=== PATIENT | male | born 1960 | race Caucasian/White ===

== ENCOUNTER → 2016-05-27 | Outpatient (CLI) | payer BC ==
--- NOTE | 2016-05-27 13:06 | PN ---
DATE OF SERVICE: 05/27/2016. A 55-year-old gentleman who has been followed in the sleep center for treatment of obstructive sleep apnea/hypopnea syndrome. He does not have any problems with usage of his CPAP equipment. [place] Sleepiness Scale is 5. I checked his CPAP unit. Usage is 28 out of 30 nights for more than 4 hours, average usage 6.6 hours. CPAP pressure is 13 cm of water. Leak is up to ( ) liters per minute, which is acceptable. Apnea-hypopnea index reading for the one month is 3.4, which is good range. MEDICATIONS: Atenolol, lisinopril, amlodipine. During physical exam, the patient in no distress. VITAL SIGNS: BP 171/81, HR 60, RR 16. Height 6 feet 0 inches, weight 294. BMI 39.8. Temperature 98.1. Oxygen saturation at room air 95%. HEENT: PERRLA, EOMI, Evaluation of the oropharynx showed tongue protrudes midline. NECK: Supple. No JVD, Thyroid is not palpable. LUNGS: Clear to percussion and to auscultation. Good air exchange. No wheezing or rhonchi. HEART: S1, S2 regular. No murmurs, gallops, or rubs. ABDOMEN: Obese. MUSIC INTERNSHIP: Awake, alert, and oriented x3. Cranial nerves 2 to 7 intact. There is no fasciculation or atrophy noted. No focal deficits observed. One plus bilateral ankle edema. IMPRESSION: 1. Obstructive sleep apnea/hypopnea syndrome on control with CPAP. Patient demonstrated great compliance with treatment, benefiting from treatment. 2. Hypertension. 3. Obesity. Patient's weight is 5 pounds less than during the visit one year ago. 4. Status post left hand surgery. 5. Status post left knee surgery. PLAN: 1. Continue treatment with CPAP at the pressure of 13 cm of water every night for the whole night. 2. Prescription for all necessary CPAP supplies. 3. Continue losing weight. 4. Sleep hygiene with regular time in bed for at least 8 hours. 5. No driving if feeling any sleepiness. 6. Continue with primary care physician for monitoring blood pressure if necessary adjustments of medications. 7. Low-sodium diet. Thank you very much for allowing me to participate in the management of your patient. Sincerely, Angelo Stevenson MD, PhD, FAASM Diplomat of [place] Board of Sleep Medicine, Sleep Medicine Board by [place] [employer] Specialities [place] Board of Internal Medicine Fashion Buying Internship of [facility] [place]
== END | disposition home or self-care (01) ==
LOC: SLEEP 10:55
PROVIDERS: ATTEND Internal Medicine
DX: G47.33 Obstructive sleep apnea (adult) (pediatric) (principal); E66.9 Obesity, unspecified; Z68.39 Body mass index [BMI] 39.0-39.9, adult; I10 Essential (primary) hypertension; Z79.899 Other long term (current) drug therapy

== ENCOUNTER → 2017-05-26 | Outpatient (CLI) | payer BC ==
--- NOTE | 2017-05-26 11:38 | SFUN ---
SLEEP STUDY FOLLOW UP NOTE DATE OF SERVICE: 05/26/2017 A 56-year-old gentleman has been followed in sleep center for treatment of obstructive sleep apnea-hypopnea syndrome. The patient continued to use his CPAP equipment every night for the whole night. He does not experience any difficulties or problems related to mask, tube, filters. Sometimes he mentioned slight leak from the mask. [place] Sleepiness Scale is 5. I checked his CPAP unit. Usage is 100% of the time more than 4 hours, average 6.9 hours. Pressure is 13 cm of water. Apnea-hypopnea index is only 1.4, but leak is quite high 68 L/minute. MEDICATIONS: Atenolol, lisinopril, amlodipine. PHYSICAL EXAM: During physical exam, patient in no distress. VITAL SIGNS: BP 173/84, HR 52, RR 16, height 6 feet 0 inches, weight 256, BMI 34.7. Patient lost around 40 pounds since previous visit. Oxygen saturation at room air 97%. HEENT: PERRLA, EOMI. Oropharynx extremely low position of soft palate. NECK: Supple, no JVD. Thyroid is not palpable. LUNGS: Clear to percussion and to auscultation. Good air exchange. No wheezing or rhonchi. HEART: S1, S2 regular. No murmurs, gallops, or rubs. ABDOMEN: Obese. EXTREMITIES: No clubbing or cyanosis. DEMOLITION HAMMER OPERATOR: Awake, alert, and oriented X3. Cranial nerves 2 to 7 intact. There is no fasciculation or atrophy. noted. No focal deficits observed. IMPRESSION: 1. Obstructive sleep apnea-hypopnea syndrome, on full control with CPAP at 13 cm of water. Patient demonstrated 100% compliance with treatment. Respirations is normal on treatment with CPAP. 2. Obesity, body mass index 34.7. Patient lost around 40 pounds since previous visit. 3. Hypertension. 4. Status post left hand surgery. 5. Status post left knee surgery. PLAN: 1. Continue treatment with CPAP every night. 2. Continue losing weight. 3. I will decrease pressure down to 12 cm of water because patient lost 40 pounds of weight and I reviewed results of previous study also. 4. We will consider to change full face mask to different style because with this mask patient has significant leak. 5. Prescription for all necessary CPAP supplies including mask, tube, filters. 6. No driving if feeling sleepiness. 7. Sleep hygiene with regular time in bed for 7-1/2 hours. 8. Followup visit in 1 year or earlier if patient has any problems. Thank you very much for allowing me to participate in management of your patient. Sincerely, Angelo Stevenson MD, PhD, FAASM Diplomat of [place] [employer] Specialties [place] Board of Internal Medicine Conference Assistant of [facility] [place] MMODL / SHANNONN: [id number] /
== END | disposition home or self-care (01) ==
LOC: SLEEP 10:17
PROVIDERS: ATTEND Internal Medicine
DX: G47.33 Obstructive sleep apnea (adult) (pediatric) (principal); E66.9 Obesity, unspecified; Z99.89 Dependence on other enabling machines and devices; Z79.899 Other long term (current) drug therapy; Z68.34 Body mass index [BMI] 34.0-34.9, adult; Z98.890 Other specified postprocedural states

== ENCOUNTER → 2018-04-20 | Outpatient (CLI) | payer BC ==
--- NOTE | 2018-04-20 11:14 | SFUN ---
SLEEP CENTER FOLLOW UP NOTE DATE OF SERVICE: 04/20/2018 This 57-year-old gentleman has been followed in sleep center for treatment of obstructive sleep apnea-hypopnea syndrome. The patient continued to use CPAP equipment every night for the whole night. He is using full-face mask and feels some discomfort on the bridge of his nose with the mask. I checked his CPAP unit. CPAP pressure is 12 cm of water. Usage is 100% of the time more than 4 hours. Average 6.1 hours. Leak 20 L/minute, which is acceptable for full- face mask. Apnea-hypopnea index 2.4, which is normal range. [place] Sleepiness Scale today is 4. MEDICATIONS: Atenolol, lisinopril. PHYSICAL EXAMINATION: During physical exam, patient in no distress. VITAL SIGNS: BP 167/87, HR 52, RR 16, height 6 feet, weight 272.2 pounds, which is around 16 pounds above the previous visit, temperature 98.5, oxygen saturation at room air 97%. HEENT: PERRLA, EOMI. Oropharynx extremely low position of soft palate. NECK: Supple, no JVD. Thyroid is not palpable. LUNGS: Clear to percussion and to auscultation. Good air exchange. No wheezing or rhonchi. HEART: S1, S2 regular. No murmurs, gallops, or rubs. ABDOMEN: Obese. EXTREMITIES No clubbing or cyanosis. DETAILER SCHOOL PHOTOGRAPHS: Awake, alert, and oriented x3. Cranial nerves 2 to 7 intact. There is no fasciculation or atrophy. noted. No focal deficits observed. IMPRESSION: 1. Obstructive sleep apnea-hypopnea syndrome on full control with CPAP at 12 cm of water. Patient demonstrated 100% compliance with treatment benefitting from treatment. 2. Slight irritation on the bridge of the nose from a full-face mask AirFit F20. 3. Obesity. 4. Hypertension. 5. Status post left hand surgery. 6. Status post left knee surgery. PLAN: 1. We will fit the patient with a different style of full-face mask when mask goes to the nose from below. It does not go to the bridge of the nose. Continue to use CPAP equipment every night for the whole night. 2. Losing weight. 3. Sleep hygiene with regular time in bed for at least 8 hours. 4. No driving if feeling any sleepiness. Thank you very much for allowing me to participate in management of your patient. Sincerely, Angelo Stevenson MD, PhD, FAASM Diplomat of [employer] Board of Medical Specialties [employer] Board of Internal Medicine Volunteer Patient Representative of [facility] [place] MMANCELMO / SHANELL: [id number] /
== END | disposition home or self-care (01) ==
LOC: SLEEP 10:09
PROVIDERS: ATTEND Internal Medicine
DX: G47.33 Obstructive sleep apnea (adult) (pediatric) (principal); J34.89 Other specified disorders of nose and nasal sinuses; E66.9 Obesity, unspecified; I10 Essential (primary) hypertension; Z99.89 Dependence on other enabling machines and devices; Z79.899 Other long term (current) drug therapy

== ENCOUNTER → 2019-10-25 | Outpatient (CLI) | payer OTHER ==
--- NOTE | 2019-10-25 16:42 | SFUN ---
SLEEP CENTER FOLLOW UP NOTE This patient is a 59-year-old gentleman who has been followed in Sleep Center for treatment of obstructive sleep apnea-hypopnea syndrome. The patient continues to use his CPAP equipment every night without significant problems. No sleepiness during the day. [place] Sleepiness Scale is 5, which is in normal range. I checked his CPAP unit. CPAP pressure is 12 cm of water. Usage is 30/30 nights for more than 4 hours with average usage 7.4 hours per night. Leak is 4 L/minute, which is perfect. Apnea-hypopnea index is only 2.5, which is absolutely normal. MEDICATIONS: Atenolol, , losartan. PHYSICAL EXAMINATION: GENERAL: A pleasant patient in no distress. VITAL SIGNS: BP 151/83, HR 70, RR 16, height 6 feet 0 inches, weight 282, BMI 38.2, temperature 98.8, oxygen saturation at room air 96%. HEENT: PERRLA, EOMI. Evaluation of oropharynx showed tongue protrudes midline. Extremely low position of soft palate. NECK: Supple. No JVD. Thyroid is not palpable. LUNGS: Clear to percussion and to auscultation. Good air exchange. No wheezing or rhonchi. HEART: S1, S2 regular. No murmurs, gallops or rubs. ABDOMEN: Obese. EXTREMITIES: No clubbing or cyanosis. VACUUM DRIER OPERATOR: Awake, alert, and oriented X3. Cranial nerves 2 to 7 intact. There is no fasciculation or atrophy. noted. No focal deficits observed. IMPRESSION: 1. Obstructive sleep apnea-hypopnea syndrome. Patient demonstrated 100% compliance with treatment. Normal respiration on CPAP. 2. Obesity. 3. Hypertension. 4. Status post left hip replacement 09/19/2019. 5. Status post left knee surgery. 6. Status post left hand surgery. PLAN: 1. Patient will continue to use PAP equipment every night for the whole night. 2. Sleep hygiene with regular time in bed for at least 7-1/2 to 8 hours. 3. Precautions related to driving. No driving if feeling sleepiness. 4. I will maintain all necessary prescription for PAP supplies, including mask, tube, filters. 5. Watching weight. 6. No driving if feeling sleepiness. 7. Follow-up visit in 6 months or earlier if patient has any problems. Thank you very much for allowing me to participate in the management of your patient. Sincerely, Angelo Stevenson MD, PhD, FAASM Diplomat of [place] [employer] Medical Specialties [place] Board of Internal Medicine Exercise Scientist of [facility] [place] MMANCELMO / SHANELL: [id number] /
== END | disposition home or self-care (01) ==
LOC: SLEEP 11:30
PROVIDERS: ATTEND Internal Medicine
DX: G47.33 Obstructive sleep apnea (adult) (pediatric) (principal); E66.9 Obesity, unspecified; I10 Essential (primary) hypertension; Z96.642 Presence of left artificial hip joint; Z96.652 Presence of left artificial knee joint; Z98.890 Other specified postprocedural states; Z68.38 Body mass index [BMI] 38.0-38.9, adult; Z79.899 Other long term (current) drug therapy

== ENCOUNTER 2020-04-07 14:57 | Emergency (ER) | payer BC, OTHER ==
[2020-04-07 15:10] VITALS: RESP 18
--- NOTE | 2020-04-07 17:33 | ED ---
General Adult HPI - General Chief complaint: Shortness of Breath Stated complaint: SOB/Cough/+COVID Time Seen by Provider: 04/07/20 16:46 Source: patient, RN notes reviewed Mode of arrival: ambulatory Limitations: no limitations - History of Present Illness Initial comments: This a 59-year-old male presents emergency Department chief complaint of shortne ss of breath. Patient states he started with symptoms on March 23. He states he tested few days after. Patient states he went back and on [place] '[place] and tested positive again. Patient states that he has quarantined for 14 days he still has some mild residual shortness of breath he did have nausea vomiting diarrhea which has resolved. He did have sweats which have all resolved. - Related Data Home Medications Medication Instructions Recorded Confirmed HYDROcodone/APAP 7.5-325MG [Donora 1 each PO Q4H PRN 02/14/14 02/14/14 7.5] Losartan Potassium 100 mg PO DAILY 02/14/14 02/14/14 atenoloL [Tenormin] 50 mg PO BID 02/14/14 02/14/14 Previous Rx's Medication Instructions Recorded Lisinopril [Prinivil] 10 mg PO DAILY #30 tab 02/14/14 Albuterol Sulfate [Proair Hfa] 1 - 2 puff INHALATION Q4HR PRN #1 04/07/20 inhaler Dexamethasone [Decadron] 6 mg PO DAILY #5 tablet 04/07/20 Allergies Allergy/AdvReac Type Severity Reaction Status Date / Time iodine AdvReac Unknown Verified 04/07/20 15:10 Penicillins AdvReac Unknown Verified 04/07/20 15:10 seafood AdvReac Unknown Uncoded 04/07/20 15:10 Review of Systems ROS Statement: Those systems with pertinent positive or pertinent negative responses have been documented in the HPI. ROS Other: All systems not noted in ROS Statement are negative. Past Medical History Past Medical History: Hypertension Additional Past Medical History / Comment(s): back pain r/t old injury History of Any Multi-Drug Resistant Organisms: None Reported Past Surgical History: Orthopedic Surgery Additional Past Surgical History / Comment(s): hand fracture surgically repaired Past Psychological History: No Psychological Hx Reported Smoking Status: Never smoker Past Alcohol Use History: Rare Past Drug Use History: None Reported General Exam Limitations: no limitations General appearance: alert, in no apparent distress Head exam: Present: atraumatic, normocephalic, normal inspection Eye exam: Present: normal appearance, PERRL, EOMI. Absent: scleral icterus, conjunctival injection, periorbital swelling ENT exam: Present: normal exam, normal oropharynx, mucous membranes moist Neck exam: Present: normal inspection, full ROM. Absent: tenderness, meningi smus, lymphadenopathy Respiratory exam: Present: normal lung sounds bilaterally. Absent: respiratory distress, wheezes, rales, rhonchi, stridor Cardiovascular Exam: Present: regular rate, normal rhythm, normal heart sounds. Absent: systolic murmur, diastolic murmur, rubs, gallop, clicks Back exam: Absent: CVA tenderness (R), CVA tenderness (L) Neurological exam: Present: alert, oriented X3 Skin exam: Present: warm, dry, intact, normal color. Absent: rash Course Vital Signs 04/07/20 15:06 Temperature 98.8 F Pulse Rate 79 Respiratory 18 Rate Blood Pressure 164/82 O2 Sat by Pulse 96 Oximetry Medical Decision Making - Medical Decision Making 59-year-old presented for shortness of breath. Patient has residual symptoms from covid Patient's x-ray shows no evidence of pneumonia. Patient denies any fevers chills he has to the all her symptoms are improving. Patient discharged on steroids. Return parameters were discussed. Disposition Clinical Impression: Pneumonia due to COVID-19 virus Disposition: HOME SELF-CARE Condition: Stable Instructions (If sedation given, give patient instructions): Upper Respiratory Infection (ED) Additional Instructions: Please return to the Emergency Department if symptoms worsen or any other concerns. Prescriptions: Dexamethasone [Decadron] 6 mg PO DAILY #5 tablet Albuterol Sulfate [Proair Hfa] 1 - 2 puff INHALATION Q4HR PRN #1 inhaler PRN Reason: difficulty in breathing Is patient prescribed a controlled substance at d/c from ED?: No Referrals: Jose Luis Hartley DO [Primary Care Provider] - 1-2 days Time of Disposition: 18:07
--- NOTE | 2020-04-07 17:59 | XR ---
EXAMINATION TYPE: XR chest 2V DATE OF EXAM: 04/07/2020 COMPARISON: 02/14/2014 HISTORY: Cough and congestion TECHNIQUE: 2 views FINDINGS: Heart and mediastinum are normal. There is some coarsening of interstitial markings in the right lower lobe. There is no pleural effusion. There are no hilar masses. Bony thorax is intact. IMPRESSION: There is some new mild interstitial infiltrate in the right lower lobe compared to old ex am.
[2020-04-07 18:20] VITALS: BP 160/85; PULSE 68; TEMP 98.2
== END 2020-04-07 18:20 | disposition home or self-care (01) ==
LOC: EC 14:57
DX: U07.1 COVID-19 (principal); J12.89 Other viral pneumonia; I10 Essential (primary) hypertension; Z79.899 Other long term (current) drug therapy; Z88.0 Allergy status to penicillin; Z91.041 Radiographic dye allergy status; Z91.013 Allergy to seafood
CPT/HCPCS: 71046; 99284

== ENCOUNTER → 2020-10-23 | Outpatient (CLI) | payer BC ==
--- NOTE | 2020-10-23 20:12 | SFUN ---
SLEEP CENTER FOLLOW UP NOTE DATE OF SERVICE: 10/23/2020. 60-year-old gentleman has been followed in Sleep Center for treatment of obstructive sleep apnea-hypopnea syndrome. Patient has successfully continues to use his CPAP every night. No snoring with CPAP. He is using a full face mask, AirFit 20 large size. I checked his CPAP unit. Pressure 12 cm of water. Usage is 30/30 nights for more than 4 hours and average 6.5 hours of night. Leak is 14 L/minute which is acceptable. Apnea- hypopnea index is only 2.5, which is perfect. [place] Sleepiness Scale today is 5. MEDICATIONS: Chlorthalidone 25 mg once a day, losartan 100 mg once a day. Atenolol 50 mg twice a day. PHYSICAL EXAMINATION: GENERAL: Patient in no distress. BP 132/81, HR 58, RR 15, height 6 feet 0 inches, weight 298, BMI 40.4, temperature 97.9. Oxygen saturation on room air 94%. Oropharynx extremely low position of soft palate. Mallampati 4. NECK: Supple, no JVD. Thyroid is not palpable. LUNGS: Clear to percussion and to auscultation. Good air exchange. No wheezing or rhonchi. HEART: S1, S2 regular. No murmurs, gallops, or rubs. ABDOMEN: Obese. Soft and nontender. Bowel sounds are present. No organomegaly appreciated. EXTREMITIES: No clubbing or cyanosis. ENVIRONMENTAL TECHNICAL OFFICER: Awake, alert, and oriented X3. Cranial nerves 2 to 7 intact. There is no fasciculation or atrophy. noted. No focal deficits observed. IMPRESSION: 1. Obstructive sleep apnea-hypopnea syndrome. Patient demonstrated 100% compliance with treatment benefitting from treatment. Normal respiration on CPAP. 2. Obesity. Patient increased weight 16 pounds. 3. Hypertension. 4. Status post left hip replacement in September of 2019. 5. Status post left knee surgery. 6. Status post left hand surgery. PLAN: 1. Although patient increased his weight, apnea-hypopnea index is normal. There is no necessity to increase CPAP pressure. 2. Patient will continue to use PAP equipment every night for the whole night. 3. Sleep hygiene with regular time in bed for at least 7-1/2 to 8 hours. 4. Precautions related to driving. No driving if feeling sleepiness. 5. I will maintain all necessary prescription for PAP supplies including mask, tube, filters. 6. Watching weight. 7. Follow-up visit in 6 months or earlier if patient has any problems. I spent with the patient and documentation 50 minutes. Thank you very much for allowing me to participate in management of your patient. Sincerely, Angelo Stevenson MD, PhD, FAASM Diplomat of [place] Board of Medical Specialties Sleep Medicine Board of [place] Board of Internal Medicine Candy Department Manager of [facility] [place] MMODL / SHANNONN: [id number] /
== END ==
LOC: SLEEP 10:16
PROVIDERS: ATTEND Internal Medicine
DX: G47.33 Obstructive sleep apnea (adult) (pediatric) (principal); I10 Essential (primary) hypertension; E66.9 Obesity, unspecified; Z96.642 Presence of left artificial hip joint; Z98.890 Other specified postprocedural states; Z79.899 Other long term (current) drug therapy; Z68.41 Body mass index [BMI] 40.0-44.9, adult; Z91.041 Radiographic dye allergy status; Z88.0 Allergy status to penicillin; Z91.013 Allergy to seafood; Z87.891 Personal history of nicotine dependence

== ENCOUNTER → 2021-10-14 | Outpatient (CLI) | payer BC ==
--- NOTE | 2021-10-14 08:39 | US ---
EXAMINATION TYPE: US bladder DATE OF EXAM: 10/14/2021 COMPARISON: NONE CLINICAL HISTORY: R35.0 Frequency of micturition. Urinary frequency. EXAM MEASUREMENTS: Post Void Residual Volume: 17.1 mL Adequate distention of bladder without intraluminal mass or wall thickening. Color Doppler performed to assess ureteral jets. Bilateral Jets seen: Yes Normal Post Void Residual (less than 50ml): Yes Prostate was visualized measuring 5.3 x 3.7 x 3.5 cm. IMPRESSION: Prominent prostate otherwise unremarkable study.
== END | disposition home or self-care (01) ==
LOC: RADUSWWP 07:36
PROVIDERS: ATTEND Family Medicine
DX: N32.89 Other specified disorders of bladder (principal)
CPT/HCPCS: 76857

== ENCOUNTER → 2022-04-28 | Outpatient (CLI) | payer BC ==
--- NOTE | 2022-04-28 10:46 | P.PN ---
Subjective DATE: 04/28/2022 FOLLOW UP VISIT. Patient with obstructive sleep apnea hypopnea syndrome return to sleep center for follow-up visit. Information from previous visit have been reviewed. Patient is using PAP equipment every night for the whole night, getting PAP supplies in time. The patient does not have significant problems with the mask, PAP unit and humidification. [place] sleepiness scale is 6, which is normal. I checked information from PAP unit. PAP unit pressure 12 cm H2O. Usage is 100 % for more then 4 hours, average 6.4 hours per night. Leak is 6 l/m, which is in acceptable range. Apnea Hypopnea Index is 3.3, which is normal. MEDICATIONS:1. Atenolol 50 mg once a day 2. Losartan 100 mg once a day 3. Chlorthalidone 25 mg once a day During physical exam: GENERAL: A pleasant patient without any distress. VITAL SIGNS: BP 152/83, HR 76, RR 18, weight 276.6, temperature 99.0, oxygen saturation at room air 96 % . HEENT: PERRLA, EOMI.low position of soft palate, Mallapati 4 . NECK: Supple. No JVD. LUNGS: Clear to percussion and to auscultation. Good air exchange. No wheezing or rhonchi. HEART: S1, S2 regular. ABDOMEN: Soft and nontender.[] EXTREMITIES: No clubbing or cyanosis. FIELD REPRESENTATIVE/HEALTH EDUCATION: Awake, alert, and oriented x3. No focal deficit. Impressions: 1. Obstructive sleep apnea-hypopnea syndrome. Patient demonstrated great compliance with treatment, benefiting from treatment. 2. Obesity. Patient lost 30 pounds since previous visit. 3. Hypertension. 4. Status post left knee surgery. 5. Status post left hip replacement in 2019. 6. Status post left hand surgery. Plan: 1. Continue using PAP equipment every night for the whole night. 2. To change air filter at least 1-2 times per month. 3. PAP unit should stay lower then position of the head. 4. Advised patient to remove all remaining water from humidifier canister daily and make it dry after each usage. Refill canister with fresh distilled water before each usage. 5. Sleep hygiene with regular time in bed for at least 8 hours. 6. Precautions related to driving. No driving if feel any sleepiness. 7. I will maintain prescription for PAP supplies including mask, tube, filters. 8. Follow up visit in 6 months or earlier if patient has any problems. 9. Watching and continue losing weight. Thank you very much for allowing me to participate in the management of your patient. Angelo Stevenson MD, PhD, FAASM. Diplomat of [place] Board of Sleep Medicine, Sleep Medicine Board by [place] [employer] of Internal Medicine Cylinder Block Hole Reliner of [facility] [place]
== END ==
LOC: SLEEP 09:56
PROVIDERS: ATTEND Internal Medicine
DX: G47.33 Obstructive sleep apnea (adult) (pediatric) (principal); E66.9 Obesity, unspecified; Z99.89 Dependence on other enabling machines and devices; Z88.0 Allergy status to penicillin; Z87.891 Personal history of nicotine dependence; Z91.013 Allergy to seafood; I10 Essential (primary) hypertension; Z98.890 Other specified postprocedural states; Z96.642 Presence of left artificial hip joint; Z79.899 Other long term (current) drug therapy; Z88.8 Allergy status to other drugs, medicaments and biological substances
CPT/HCPCS: 99212

== ENCOUNTER → 2022-10-06 | Outpatient (CLI) | payer BC ==
--- NOTE | 2022-10-06 10:47 | P.PN ---
Subjective DATE: 10/06/2022 FOLLOW UP VISIT. Patient with obstructive sleep apnea hypopnea syndrome return to sleep center for follow-up visit. Information from previous visit have been reviewed. Patient is using PAP equipment every night for the whole night, getting PAP supplies in time. The patient does not have significant problems with the mask, PAP unit and humidification. [place] sleepiness scale is 5, which is normal. I checked information from PAP unit. PAP unit pressure 12 cm H2O. Usage is 100 % for more then 4 hours, average 6.5 hours per night. Leak is 13 l/m, which is in acceptable range. Apnea Hypopnea Index is 2.5, which is normal. MEDICATIONS:1. Chlorthalidone 25 mg once a day 2. Atenolol 50 mg once a day 3. Losartan 100 mg once a day During physical exam: GENERAL: A pleasant patient without any distress. VITAL SIGNS: BP 155/84, HR 54, RR 18 , weight 277.4, temperature 98.5, oxygen saturation at room air 95 % . HEENT: PERRLA, EOMI.low position of soft palate, Mallapati 4 . NECK: Supple. No JVD. LUNGS: Clear to percussion and to auscultation. Good air exchange. No wheezing or rhonchi. HEART: S1, S2 regular. ABDOMEN: Soft and nontender. Obese EXTREMITIES: No clubbing or cyanosis. LABORATORY ENGINEER: Awake, alert, and oriented x3. No focal deficit. Impressions: 1. Obstructive sleep apnea-hypopnea syndrome. Patient demonstrated great compliance with treatment, benefiting from treatment. 2. Obesity. 3. Hypertension. 4. Status post left hip replacement in 2019. 5. Status post left knee surgery. 6. Status post left hand surgery. Plan: 1. Continue using PAP equipment every night for the whole night. 2. To change air filter at least 1-2 times per month. 3. PAP unit should stay lower then position of the head. 4. Advised patient to remove all remaining water from humidifier canister daily and make it dry after each usage. Refill canister with fresh distilled water before each usage. 5. Sleep hygiene with regular time in bed for at least 8 hours. 6. Precautions related to driving. No driving if feel any sleepiness. 7. I will maintain prescription for PAP supplies including mask, tube, filters. 8. Watching and losing weight. 9. Follow up visit in 6 months or earlier if patient has any problems. Thank you very much for allowing me to participate in the management of your patient. Angelo Stevenson MD, PhD, FAASM. Diplomat of [place] Board of Sleep Medicine, Sleep Medicine Board by [place] [employer] of [employer] Medicine Wheelchair Van Driver of [facility] [place]
== END ==
LOC: 3 N SLEEP 10:16
PROVIDERS: ATTEND Internal Medicine
DX: G47.33 Obstructive sleep apnea (adult) (pediatric) (principal); E66.9 Obesity, unspecified; I10 Essential (primary) hypertension; Z99.89 Dependence on other enabling machines and devices; Z96.652 Presence of left artificial knee joint; Z96.692 Finger-joint replacement of left hand; Z96.642 Presence of left artificial hip joint; Z88.0 Allergy status to penicillin; Z91.013 Allergy to seafood; Z91.041 Radiographic dye allergy status; Z79.899 Other long term (current) drug therapy; Z87.891 Personal history of nicotine dependence
CPT/HCPCS: 99212

== ENCOUNTER → 2023-04-13 | Outpatient (CLI) | payer BC ==
--- NOTE | 2023-04-13 10:52 | P.PN ---
Subjective DATE: 04/13/2023 FOLLOW UP VISIT. Patient with obstructive sleep apnea hypopnea syndrome return to sleep center for follow-up visit. Information from previous visit have been reviewed. Patient is using PAP equipment every night for the whole night, getting PAP supplies in time. The patient does not have significant problems with the mask, PAP unit and humidification. Independence sleepiness scale is 2, which is normal. I checked information from PAP unit. PAP unit pressure 12 cm H2O. Usage is 98 % for more then 4 hours, average 7 hours per night. Leak is 7 l/m, which is in acceptable range. Apnea Hypopnea Index is 4.7, which is normal, but slightly increased compared with previous visit when it was 2.5. MEDICATIONS:1. Chlorthalidone 25 mg once a day 2. Atenolol 50 mg once a day 3. Losartan 100 mg once a day During physical exam: GENERAL: A pleasant patient without any distress. VITAL SIGNS: BP 170/88, HR 57, RR 16 , weight 286.8, temperature 98.2, oxygen saturation at room air 96 % . HEENT: PERRLA, EOMI.low position of soft palate, Mallapati 4 . NECK: Supple. No JVD. LUNGS: Clear to percussion and to auscultation. Good air exchange. No wheezing or rhonchi. HEART: S1, S2 regular. ABDOMEN: Soft and nontender. Slightly obese EXTREMITIES: No clubbing or cyanosis. GRAVITY PROSPECTOR: Awake, alert, and oriented x3. No focal deficit. Impressions: 1. Obstructive sleep apnea-hypopnea syndrome. Patient demonstrated great compliance with treatment, benefiting from treatment. 2. Obesity, patient increased his weight on 9 pounds comparing for the previous visit. 3. Hypertension. 4. Status post left hip replacement in 2019. 5. Status post left knee surgery. 6. Status post left hand surgery. I changed pressure in CPAP unit to AutoPAP 10-15 cm of water. Plan: 1. Continue using PAP equipment every night for the whole night. 2. To change air filter at least 1-2 times per month. 3. PAP unit should stay lower then position of the head. 4. Advised patient to remove all remaining water from humidifier canister daily and make it dry after each usage. Refill canister with fresh distilled water before each usage. 5. Sleep hygiene with regular time in bed for at least 8 hours. 6. Precautions related to driving. No driving if feel any sleepiness. 7. I will maintain prescription for PAP supplies including mask, tube, filters. 8. Follow up visit in 6 months or earlier if patient has any problems. 9. Watching and losing weight. Thank you very much for allowing me to participate in the management of your patient. Angelo Stevenson MD, PhD, FAASM. Diplomat of [employer], Sleep Medicine Board by [employer] [facility] [place]
== END ==
LOC: 3 N SLEEP 10:13
PROVIDERS: ATTEND Internal Medicine
DX: G47.33 Obstructive sleep apnea (adult) (pediatric) (principal); E66.9 Obesity, unspecified; I10 Essential (primary) hypertension; Z98.890 Other specified postprocedural states; Z99.89 Dependence on other enabling machines and devices; Z88.1 Allergy status to other antibiotic agents; Z88.0 Allergy status to penicillin; Z91.013 Allergy to seafood; Z79.899 Other long term (current) drug therapy; Z87.891 Personal history of nicotine dependence
CPT/HCPCS: 99212

== ENCOUNTER → 2023-11-10 | Outpatient (CLI) | payer BC | LOC: 3 N SLEEP 10:05 | PROVIDERS: ATTEND Internal Medicine | CPT/HCPCS: 99212 ==